=== PATIENT | female | born 1955 | race Asian ===

== ENCOUNTER 2021-08-09 11:00 | Emergency (ER) | payer MEDICARE, OTHER ==
[~2021-08-09] VITALS: Ht 160 cm; Wt 59.1 kg
[2021-08-09] MEDS ORDERED: KETOROLAC TROMETHAMINE 60 MG/2 ML VIAL IM ONE (11:30)
[2021-08-09] MEDS ORDERED: CYCLOBENZAPRINE HCL 10 MG TABLET PO ONE (11:30)
[2021-08-09] MEDS ORDERED: SIMV-259 PO (12:01)
[2021-08-09] MEDS ORDERED: AMLO2.5T96 PO (12:01)
[2021-08-09] MEDS ORDERED: METF-1211 PO (12:01)
[2021-08-09 13:53] VITALS: BP 138/80
== END 2021-08-09 13:55 | disposition home or self-care (01) ==
LOC: EMS 11:00
DX: S40.011A Contusion of right shoulder, initial encounter (principal); M62.838 Other muscle spasm; E78.00 Pure hypercholesterolemia, unspecified; I10 Essential (primary) hypertension; E11.9 Type 2 diabetes mellitus without complications; V29.49XA Motorcycle driver injured in collision with other motor vehicles in traffic accident, initial encounter; Y93.89 Activity, other specified; Y92.89 Other specified places as the place of occurrence of the external cause; Y99.8 Other external cause status
CPT/HCPCS: 71045; 73030; 82962; 96372; 99284; J1885

== ENCOUNTER 2021-08-26 08:57 | Emergency (ER) | payer MEDICARE, OTHER ==
[~2021-08-26] VITALS: Ht 152.4 cm; Wt 55.0 kg
[~2021-08-26 08:57] MED LIST: AMLO2.5T96 PO; METF-1211 PO; SIMV-259 PO
[2021-08-26] MEDS ORDERED: TOBRAMYCIN/DEXAMETHASONE 5 ML OPHTHALMIC SUSPENSION OU ONE (10:00)
[2021-08-26] MEDS ORDERED: DiphenhydrAMINE HCL 25 MG CAPSULE PO ONE (10:00)
[2021-08-26 10:30] VITALS: BP 124/71
== END 2021-08-26 11:23 | disposition home or self-care (01) ==
LOC: EMS 08:57
DX: H10.13 Acute atopic conjunctivitis, bilateral (principal); L30.9 Dermatitis, unspecified; E11.9 Type 2 diabetes mellitus without complications; E78.00 Pure hypercholesterolemia, unspecified; I10 Essential (primary) hypertension; Z79.84 Long term (current) use of oral hypoglycemic drugs
CPT/HCPCS: 99283